=== PATIENT | male | born 1930 | race Two or more races ===

== ENCOUNTER 2017-04-24 18:07 | Inpatient (IN) | payer MEDICARE, MEDICAID ==
[~2017-04-24] VITALS: Ht 170.2 cm; Wt 66.7 kg
[2017-04-24] MEDS ORDERED: SINEMET 25/1001 EA ORAL (18:14)
[2017-04-24] MEDS ORDERED: IBUPROFEN600 MG ORAL (18:14)
[2017-04-24] MEDS ORDERED: NORVASC2.5 MG ORAL (18:14)
[2017-04-24] MEDS ORDERED: VICODIN ES 7.51 EAC1 ORAL (18:14)
[2017-04-24] MEDS ORDERED: NITROGLYCERIN2.5 M1 PO (18:14)
[2017-04-24] MEDS ORDERED: MECLIZINE HCL25 M1 ORAL (18:14)
[2017-04-24] MEDS ORDERED: CLOPIDOGREL75 MG ORAL (18:14)
[2017-04-24 19:00] VITALS: BP 124/47
[2017-04-24 19:02] LABS: BASOPHILS % (AUTO) 0.7 % (0.0-2.0); EOSINOPHILS % (AUTO) 0.2 % (0.0-3.0); LYMPHOCYTES % (AUTO) 20.7 % (20.0-45.0); MEAN CORPUSCULAR HEMOGLOBIN 31.7 PG (27.0-31.0); MEAN CORPUSCULAR HGB CONC 34.8 G/DL (32.0-36.0); MEAN CORPUSCULAR VOLUME 91 FL (80-99); MEAN PLATELET VOLUME 7.6 FL (6.5-10.1); MONOCYTES % (AUTO) 7.8 % (1.0-10.0); NEUTROPHILS % (AUTO) 70.6 % (45.0-75.0); PLATELET COUNT 185 K/UL (150-450); RED BLOOD COUNT 3.75 M/UL (4.70-6.10); RED CELL DISTRIBUTION WIDTH 11.5 % (11.6-14.8); WHITE BLOOD COUNT 4.8 K/UL (4.8-10.8)
[2017-04-24 19:11] LABS: TROPONIN I < 0.30 ng/mL (<=0.30)
[2017-04-24 19:14] LABS: ALANINE AMINOTRANSFERASE 5 U/L (3-41); ALBUMIN/GLOBULIN RATIO 1.8 (1.0-2.7); ANION GAP 23 (5-15); ASPARTATE AMINO TRANSFERASE 11 U/L (5-40); CALCIUM 10.1 mg/dL (8.6-10.2); CARBON DIOXIDE 18 mEQ/L (20-30); CHLORIDE 91 mEQ/L (98-107); CREATININE 1.1 mg/dL (0.7-1.2); HEMOLYSIS 5; POTASSIUM 4.3 mEQ/L (3.4-4.9); SODIUM 132 mEQ/L (135-145); TOTAL PROTEIN 6.9 g/dL (6.6-8.7)
[2017-04-24 19:16] LABS: APPEARANCE,URINE CLEAR; PH,URINE 7 (4.5-8.0); PROTEIN,URINE NEGATIVE (NEGATIVE)
[2017-04-24 19:16] LABS: INR 0.9 (0.9-1.1); PROTHROMBIN TIME 9.8 SEC (9.30-11.50)
[2017-04-24 19:17] LABS: KETONES,URINE NEGATIVE (NEGATIVE); LEUKOCYTE ESTERASE ,URINE NEGATIVE (NEGATIVE); NITRITE,URINE NEGATIVE (NEGATIVE); UROBILINOGEN,URINE NORMAL MG/DL (0.0-1.0)
[2017-04-24 19:21] LABS: CKMB 2.6 ng/mL (< 6.7)
[2017-04-24 20:40] VITALS: BP 152/44
--- NOTE | 2017-04-24 21:46 | Emergency Room Report ---
History of Present Illness General Chief Complaint: Dyspnea/Respdistress Source: Patient, Caregiver Present Illness HPI This patient is brought in by EMS. He complains of chest tightness and difficulty breathing. He states it is been going on for the past couple days. He denies cough or congestion. Denies fever chills. Denies nausea or vomiting. He does have some abdominal pain and has had some difficulty urinating. He has no other complaints. Allergies: Coded Allergies: No Known Allergies (Unverified , 04/24/17) Patient History Past Medical History: see triage record, HTN, [place], CAD Past Surgical History: pacemaker Social History: Denies: alcohol use, drug use, smoking Reviewed Nursing Documentation: PMH: Agreed, PSxH: Agreed Nursing Documentation-PMH Hx Cardiac Problems: Yes Hx Hypertension: Yes Hx Pacemaker: Yes Hx Asthma: No Hx COPD: No Hx Diabetes: No Hx Cancer: No Hx Gastrointestinal Problems: No Hx Dialysis: No History Of Psychiatric Problem: No Hx Neurological Problems: No Hx Cerebrovascular Accident: No Hx Seizures: No Review of Systems All Other Systems: negative except mentioned in HPI Physical Exam Vital Signs Date Time Temp Pulse Resp B/P Pulse Ox O2 Delivery O2 Flow Rate FiO2 04/24/17 18:07 96 20 156/68 100 Room Air 04/24/17 20:40 97.9 Sp02 EP Interpretation: reviewed, normal General Appearance: no apparent distress, alert, GCS 15, non-toxic Head: normocephalic, atraumatic Eyes: bilateral eye PERRL, bilateral eye normal inspection ENT: hearing grossly normal, normal pharynx, no angioedema, normal voice Neck: full range of motion, supple/symm/no masses Respiratory: chest non-tender, lungs clear, normal breath sounds, speaking full sentences Cardiovascular #1: regular rate, rhythm, no edema, systolic murmur Gastrointestinal: normal bowel sounds, soft, no guarding, no rebound, tenderness - TTP suprapubically. Rectal: deferred Musculoskeletal: back normal, gait/station normal, normal range of motion, non- tender Neurologic: alert, oriented x3, responsive, motor strength/tone normal, sensory intact, speech normal Psychiatric: judgement/insight normal, memory normal, mood/affect normal, no suicidal/homicidal ideation Skin: normal color, no rash, warm/dry, well hydrated Medical Decision Making Diagnostic Impression: Primary Impression: Dyspnea Additional Impressions: Chest pain Urinary retention ER Course This patient presents with chest tightness and dyspnea. He is high risk for acute coronary syndrome given his age and his history of coronary artery disease and has a pacemaker. He also found to have urinary retention and a Coleman catheter was placed with significant relief. There is no evidence of urinary tract infection or prostatitis on urinalysis. Likely this is benign prostatic hypertrophy. Regardless, the patient's high cardiac risk and will be admitted for further evaluation and treatment. The patient remained stable emergency department is admitted. Labs Test 04/24/17 18:00 04/24/17 18:30 White Blood Count 4.8 K/UL (4.8-10.8) Red Blood Count 3.75 M/UL (4.70-6.10) Hemoglobin 11.9 G/DL (14.2-18.0) Hematocrit 34.2 % (42.0-52.0) Mean Corpuscular Volume 91 FL (80-99) Mean Corpuscular Hemoglobin 31.7 PG (27.0-31.0) Mean Corpuscular Hemoglobin Concent 34.8 G/DL (32.0-36.0) Red Cell Distribution Width 11.5 % (11.6-14.8) Platelet Count 185 K/UL (150-450) Mean Platelet Volume 7.6 FL (6.5-10.1) Neutrophils (%) (Auto) 70.6 % (45.0-75.0) Lymphocytes (%) (Auto) 20.7 % (20.0-45.0) Monocytes (%) (Auto) 7.8 % (1.0-10.0) Eosinophils (%) (Auto) 0.2 % (0.0-3.0) Basophils (%) (Auto) 0.7 % (0.0-2.0) Prothrombin Time 9.8 SEC (9.30-11.50) Prothromb Time International Ratio 0.9 (0.9-1.1) Activated Partial Thromboplast Time 25 SEC (23-33) Sodium Level 132 mEQ/L (135-145) Potassium Level 4.3 mEQ/L (3.4-4.9) Chloride Level 91 mEQ/L (98-107) Carbon Dioxide Level 18 mEQ/L (20-30) Anion Gap 23 (5-15) Blood Urea Nitrogen 16 mg/dL (7-23) Creatinine 1.1 mg/dL (0.7-1.2) Estimat Glomerular Filtration Rate mL/min (>60) Glucose Level 114 mg/dL (74-106) Calcium Level 10.1 mg/dL (8.6-10.2) Total Bilirubin 0.3 mg/dL (0.0-1.2) Aspartate Amino Transf (AST/SGOT) 11 U/L (5-40) Alanine Aminotransferase (ALT/SGPT) 5 U/L (3-41) Alkaline Phosphatase 65 U/L (40-129) Total Creatine Kinase 77 U/L (38-174) Creatine Kinase MB 2.6 ng/mL (< 6.7) Creatine Kinase MB Relative Index 3.3 Troponin I < 0.30 ng/mL (<=0.30) Pro-B-Type Natriuretic Peptide 304 pg/mL (0-450) Total Protein 6.9 g/dL (6.6-8.7) Albumin 4.5 g/dL (3.5-5.2) Globulin 2.4 g/dL Albumin/Globulin Ratio 1.8 (1.0-2.7) Urine Color Pale yellow Urine Appearance Clear Urine pH 7 (4.5-8.0) Urine Specific [place] 1.010 (1.005-1.035) Urine Protein Negative (NEGATIVE) Urine Glucose (UA) Negative (NEGATIVE) Urine Ketones Negative (NEGATIVE) Urine Occult Blood Negative (NEGATIVE) Urine Nitrite Negative (NEGATIVE) Urine Bilirubin Negative (NEGATIVE) Urine Urobilinogen Normal MG/DL (0.0-1.0) Urine Leukocyte Esterase Negative (NEGATIVE) EKG Diagnostic Results Rate: normal Rhythm: other ST Segments: no acute changes Other Impression paced Rhythm Strip Diag. Results EP Interpretation: yes Rate: 80's Rhythm: no PVC's, no ectopy, other Other Impression paced Chest X-Ray Diagnostic Results Chest X-Ray Ordered: Yes # of Views/Limited/Complete: 1 View Interpretation: no consolidation, no effusion, no pneumothorax, other - cardiomegaly Indication: Shortness of Breath Impression: No acute disease Date Electronically Signed: Apr 24, 2017 Time Electronically Signed: 21:46 Interpreting ER Physician: Katie Last Vital Signs Date Time Temp Pulse Resp B/P Pulse Ox O2 Delivery O2 Flow Rate FiO2 04/24/17 20:40 97.9 82 26 152/44 100 Room Air Disposition: ADMITTED INPATIENT Condition: Stable Referrals: SAHARA KONG MD (PCP) KATHY GONZALES D.O. Apr 24, 2017 21:46
[2017-04-24] MEDS ORDERED: Miralax 17gm pkt ORAL PRN (22:00)
[2017-04-24] MEDS ORDERED: DuoNeb 0.5-3(2.5)mg/3ml neb HHN PRN (22:00)
[2017-04-24 22:32] VITALS: BP 139/49
[2017-04-24] MEDS ORDERED: Morphine Sulfate 2mg/ml Inj IVP ONE (23:00)
[2017-04-24 23:58] VITALS: BP 145/54
[2017-04-25] VITALS (8 sets, daily range): BP systolic 99–154; BP diastolic 49–71
--- NOTE | 2017-04-25 07:41 | Wound Care Consultation ---
Wound Assessment Wound Assessment #1: Wound Number: #1 Wound Present on Admission: Yes New Wound: No Status Change of Wound: No Wound Location Body Site Modif: right, medial Wound Location Body Site: heel Wound Type: pressure ulcer Page Test: Does not Page Pressure Ulcer Stage: IV/unstageable Wound Thickness: Full Thickness Wound Length: 1.0 Wound Width: 1.0 Wound Depth: utd Percent of Wound Black/Brown: 100 Wound Drainage Amount: None Wound Drainage Odor: None/Absent Tissue Surrounding Wound: Intact Wound General Appearance: Blackened - brown, Clean/Dry Wound Assessment #2: Wound Number: #2 Wound Present on Admission: Yes New Wound: No Status Change of Wound: No Wound Location Body Site Modif: right, lateral Wound Location Body Site: heel Wound Type: other - heel fissures scattered. Page Test: Does not Page Wound Thickness: Partial Thickness Wound Length: 2.0 Wound Width: 2.0 Wound Depth: utd Percent of Wound [place]/Red: 100 Wound Drainage Amount: None Wound Drainage Odor: None/Absent Tissue Surrounding Wound: Erythemic Wound General Appearance: Open to air, Clean/Dry Wound Assessment #3: Wound Number: #3 Wound Present on Admission: Yes New Wound: No Status Change of Wound: No Wound Location Body Site Modif: left Wound Location Body Site: heel Wound Type: pressure ulcer Page Test: Does not Page Pressure Ulcer Stage: deep tissue injury - suspected , patient states tendeness to site. Wound Thickness: Full Thickness Wound Length: 6.0 Wound Width: 6.0 Wound Depth: utd Percent of Wound [place]/Red: 50 Percent of Wound Purple/Maroon: 50 Wound Drainage Amount: None Wound Drainage Odor: None/Absent Tissue Surrounding Wound: dry, flaky skin. Wound General Appearance: Open to air, Clean/Dry Wound Comment #1 right medial heel unstageable pressure ulcer. #2 right lateral heel scattered fissures. #3 left heel suspected deep tissue injury. #4 left and right foot scaly dry flaky skin. Recommendation. -Local wound care as ordered per protocol. -Turn and reposition. -Keep clean and dry. -Avoid shear and friction. -Apply Heel protectors. -Offload heels. - Keep dry skin moisturized. -Assess and notify MD for any changes of condition to skin noted. ISAURA JUAREZ Apr 25, 2017 07:41
[2017-04-25 08:04] LABS: BASOPHILS % (AUTO) 0.4 % (0.0-2.0); EOSINOPHILS % (AUTO) 0.3 % (0.0-3.0); LYMPHOCYTES % (AUTO) 17.6 % (20.0-45.0); MEAN CORPUSCULAR HEMOGLOBIN 32.8 PG (27.0-31.0); MEAN CORPUSCULAR HGB CONC 36.4 G/DL (32.0-36.0); MEAN CORPUSCULAR VOLUME 90 FL (80-99); MEAN PLATELET VOLUME 7.6 FL (6.5-10.1); MONOCYTES % (AUTO) 9.7 % (1.0-10.0); PLATELET COUNT 219 K/UL (150-450); RED BLOOD COUNT 4.29 M/UL (4.70-6.10); RED CELL DISTRIBUTION WIDTH 11.7 % (11.6-14.8)
[2017-04-25 08:20] LABS: ANION GAP 19 (5-15); CALCIUM 9.9 mg/dL (8.6-10.2); CARBON DIOXIDE 22 mEQ/L (20-30); CHLORIDE 95 mEQ/L (98-107); CREATININE 1.2 mg/dL (0.7-1.2); HEMOLYSIS 4; PHOSPHORUS 2.8 mg/dL (2.5-4.8); POTASSIUM 3.8 mEQ/L (3.4-4.9); SODIUM 136 mEQ/L (135-145)
[2017-04-25 08:25] LABS: TROPONIN I < 0.30 ng/mL (<=0.30)
[2017-04-25] MEDS: Sinemet 25/100 tab ORAL SCH ×5 (09:00→17:35)
[2017-04-25] MEDS: Heparin 5000 units/ml inj SUBQ SCH ×2 (10:17→22:28)
[2017-04-25] MEDS: Norco 7.5mg/325mg tab ORAL PRN ×2 (10:24→22:51)
--- NOTE | 2017-04-25 11:15 | Diagnostic Imaging Report ---
Indication: DYSPNEA Technique: One view of the chest Comparison: 04/24/2017 Findings: Stable satisfactory position of left chest pacemaker. The lungs and pleural spaces are clear. The heart remains borderline enlarged. No significant change Impression: Unchanged, over one day, findings as above.
--- NOTE | 2017-04-25 12:04 | Diagnostic Imaging Report ---
Indication: DYSPNEA Technique: One view of the chest Comparison: none Findings: Lungs and pleural spaces are clear. There is a left chest pacemaker. The heart is enlarged. Aorta is tortuous and calcified Impression: No acute process Cardiomegaly
[2017-04-25] MEDS: Vitamin A&D Oint 2oz Tube TOPIC SCH ×2 (12:35→22:52)
[2017-04-25] MEDS ORDERED: AMBIEN10 M1 ORAL (14:27)
[2017-04-25] MEDS ORDERED: LORAZEPAM2 MG ORAL (14:27)
[2017-04-25] MEDS ORDERED: LEXAPRO20 MG ORAL (14:27)
[2017-04-25] MEDS ORDERED: ALLOPURINOL100 M1 ORAL (14:27)
[2017-04-25] MEDS ORDERED: ALENDRONATE SOD70 MG ORAL (14:27)
[2017-04-25] MEDS ORDERED: PLAVIX75 MG ORAL (14:27)
[2017-04-25] MEDS ORDERED: BETHANECHOL CHL50 MG ORAL (14:27)
[2017-04-25] MEDS ORDERED: LOTREL 5-20 MG1 EACH ORAL (14:27)
--- NOTE | 2017-04-25 14:56 | History and Physical ---
History of Present Illness General Date patient seen: Apr 25, 2017 Reason for Hospitalization: Dyspnea/Respdistress Present Illness HPI 86 year old male with hx of pacemaker, CAD, BPH, is brought in by EMS with CC of chest tightness and difficulty breathing. He states it is been going on for the past couple days. He denies cough or congestion. Denies fever chills. Denies nausea or vomiting. He does have some abdominal pain and has had some difficulty urinating. He has no other complaints. He is admitted to telemetry to rule out ACS. Allergies: Coded Allergies: No Known Allergies (Unverified , 04/24/17) Medication History Scheduled Alendronate Sodium* (Fosamax*), 70 MG ORAL ONCE A WEEK, (Reported) Allopurinol* (Allopurinol*), 100 MG ORAL DAILY, (Reported) Amlodipine Besylate (Norvasc), Unknown Dose ORAL DAILY, (Reported) Amlodipine Besylate/Benazepril 5-20 Mg (Lotrel 5-20 Mg Capsule*), 1 CAP ORAL DAILY, (Reported) Bethanechol Chl* (Bethanechol Chloride*), 50 MG ORAL THREE TIMES A DAY, ( Reported) Clopidogrel Bisulfate* (Plavix*), 75 MG ORAL DAILY, (Reported) Clopidogrel* (Clopidogrel*), Unknown Dose ORAL DAILY, (Reported) Escitalopram Oxalate* (Lexapro*), 20 MG ORAL DAILY, (Reported) Ibuprofen* (Motrin*), Unknown Dose ORAL FOUR TIMES A DAY, (Reported) Levodopa/Carbidopa (Carbidopa-Levodopa 25-100 Tab), 1 TAB ORAL THREE TIMES A DAY , (Reported) Lorazepam* (Lorazepam*), 2 MG ORAL DAILY, (Reported) Meclizine Hcl (Meclizine Hcl), Unknown Dose ORAL THREE TIMES A DAY, (Reported) Zolpidem Tartrate* (Ambien*), 10 MG ORAL HS, (Reported) Scheduled PRN Hydrocodone Bit/Acetaminophen 7.5-300 Mg Tabl (Vicodin Es 7.5-300 Mg Tablet), 1 TAB ORAL Q4H PRN for For Pain, (Reported) Miscellaneous Medications Nitroglycerin (Nitroglycerin), Unknown Dose PO, (Reported) Patient History Healthcare decision maker Resuscitation status Full Code Advanced Directive on File Past Medical/Surgical History Past Medical/Surgical History: (1) Pacemaker (2) BPH (benign prostatic hyperplasia) (3) Chest pain (4) Urinary retention Review of Systems All Other Systems: negative except mentioned in HPI Physical Exam General Appearance: cachetic Lines, tubes and drains: peripheral HEENT: normocephalic, atraumatic Neck: non-tender, normal alignment Respiratory/Chest: chest wall non-tender, lungs clear Cardiovascular/Chest: normal peripheral pulses, normal rate Abdomen: normal bowel sounds Genitourinary/Rectal: normal genital exam Last 24 Hour Vital Signs Date Time Temp Pulse Resp B/P Pulse Ox O2 Delivery O2 Flow Rate FiO2 04/25/17 12:00 80 04/25/17 11:37 98.2 83 18 99/49 98 Nasal Cannula 2.0 04/25/17 10:17 87 122/51 04/25/17 08:07 97.2 87 20 122/51 96 Nasal Cannula 2.0 04/25/17 08:00 80 04/25/17 04:00 97.7 84 18 142/71 99 Nasal Cannula 2.0 04/25/17 04:00 84 04/25/17 02:15 84 04/25/17 02:03 98.1 84 18 154/58 100 Nasal Cannula 2.0 04/25/17 02:00 98.1 84 18 154/58 100 Nasal Cannula 2.0 04/25/17 01:43 98.7 87 21 133/54 100 Nasal Cannula 2.0 04/24/17 23:58 99 26 145/54 100 Nasal Cannula 2.0 04/24/17 23:26 97.9 04/24/17 22:32 91 27 139/49 100 Room Air 04/24/17 20:40 97.9 82 26 152/44 100 Room Air 04/24/17 19:00 74 20 124/47 99 Room Air 04/24/17 18:47 77 20 Room Air 04/24/17 18:07 96 20 156/68 100 Room Air Intake and Output 04/24/17 04/25/17 19:00 07:00 Output Total 40 ml 3375 ml Balance -40 ml -3375 ml Output Urine Total 40 ml 3375 ml Laboratory Tests Test 04/24/17 18:00 04/24/17 18:30 04/25/17 07:27 White Blood Count 4.8 K/UL (4.8-10.8) 8.0 K/UL (4.8-10.8) # Red Blood Count 3.75 M/UL (4.70-6.10) L 4.29 M/UL (4.70-6.10) L Hemoglobin 11.9 G/DL (14.2-18.0) L 14.1 G/DL (14.2-18.0) L Hematocrit 34.2 % (42.0-52.0) L 38.6 % (42.0-52.0) L Mean Corpuscular Volume 91 FL (80-99) 90 FL (80-99) Mean Corpuscular Hemoglobin 31.7 PG (27.0-31.0) H 32.8 PG (27.0-31.0) H Mean Corpuscular Hemoglobin Concent 34.8 G/DL (32.0-36.0) 36.4 G/DL (32.0-36.0) H Red Cell Distribution Width 11.5 % (11.6-14.8) L 11.7 % (11.6-14.8) Platelet Count 185 K/UL (150-450) 219 K/UL (150-450) Mean Platelet Volume 7.6 FL (6.5-10.1) 7.6 FL (6.5-10.1) Neutrophils (%) (Auto) 70.6 % (45.0-75.0) 72.0 % (45.0-75.0) Lymphocytes (%) (Auto) 20.7 % (20.0-45.0) 17.6 % (20.0-45.0) L Monocytes (%) (Auto) 7.8 % (1.0-10.0) 9.7 % (1.0-10.0) Eosinophils (%) (Auto) 0.2 % (0.0-3.0) 0.3 % (0.0-3.0) Basophils (%) (Auto) 0.7 % (0.0-2.0) 0.4 % (0.0-2.0) Prothrombin Time 9.8 SEC (9.30-11.50) Prothromb Time International Ratio 0.9 (0.9-1.1) Activated Partial Thromboplast Time 25 SEC (23-33) Sodium Level 132 mEQ/L (135-145) L 136 mEQ/L (135-145) Potassium Level 4.3 mEQ/L (3.4-4.9) 3.8 mEQ/L (3.4-4.9) Chloride Level 91 mEQ/L (98-107) L 95 mEQ/L (98-107) L Carbon Dioxide Level 18 mEQ/L (20-30) L 22 mEQ/L (20-30) Anion Gap 23 (5-15) H 19 (5-15) H Blood Urea Nitrogen 16 mg/dL (7-23) 16 mg/dL (7-23) Creatinine 1.1 mg/dL (0.7-1.2) 1.2 mg/dL (0.7-1.2) Estimat Glomerular Filtration Rate mL/min (>60) mL/min (>60) Glucose Level 114 mg/dL (74-106) H 129 mg/dL (74-106) H Calcium Level 10.1 mg/dL (8.6-10.2) 9.9 mg/dL (8.6-10.2) Total Bilirubin 0.3 mg/dL (0.0-1.2) Aspartate Amino Transf (AST/SGOT) 11 U/L (5-40) Alanine Aminotransferase (ALT/SGPT) 5 U/L (3-41) Alkaline Phosphatase 65 U/L (40-129) Total Creatine Kinase 77 U/L (38-174) Creatine Kinase MB 2.6 ng/mL (< 6.7) Creatine Kinase MB Relative Index 3.3 Troponin I < 0.30 ng/mL (<=0.30) < 0.30 ng/mL (<=0.30) Pro-B-Type Natriuretic Peptide 304 pg/mL (0-450) Total Protein 6.9 g/dL (6.6-8.7) Albumin 4.5 g/dL (3.5-5.2) 4.4 g/dL (3.5-5.2) Globulin 2.4 g/dL Albumin/Globulin Ratio 1.8 (1.0-2.7) Urine Color Pale yellow Urine Appearance Clear Urine pH 7 (4.5-8.0) Urine Specific [place] 1.010 (1.005-1.035) Urine Protein Negative (NEGATIVE) Urine Glucose (UA) Negative (NEGATIVE) Urine Ketones Negative (NEGATIVE) Urine Occult Blood Negative (NEGATIVE) Urine Nitrite Negative (NEGATIVE) Urine Bilirubin Negative (NEGATIVE) Urine Urobilinogen Normal MG/DL (0.0-1.0) Urine Leukocyte Esterase Negative (NEGATIVE) Phosphorus Level 2.8 mg/dL (2.5-4.8) Height (Feet): 5 Height (Inches): 8.00 Weight (Pounds): 138 Medications Current Medications Medications (Trade) Dose Ordered Sig/Chely Route PRN Reason Start Time Stop Time Status Last Admin Dose Admin Acetaminophen (Tylenol) 650 mg Q4H PRN ORAL Fever 04/24/17 22:00 05/24/17 21:59 Acetaminophen/ Hydrocodone Bitart ([place] 7.5/325) 1 ea Q4H PRN ORAL Severe Pain (Pain Scale 7-10) 04/25/17 07:45 05/02/17 07:44 04/25/17 10:24 Albuterol/ Ipratropium (DuoNeb 0.5-3(2.5)mg/3ml) 3 ml Q4H PRN HHN Shortness of Breath 04/24/17 22:00 04/29/17 21:59 Amlodipine Besylate (Norvasc) 5 mg DAILY ORAL 04/25/17 09:00 05/25/17 08:59 04/25/17 10:17 Carbidopa/Levodopa (Sinemet 25/100) 1 ea THREE TIMES A DAY ORAL 04/25/17 09:00 05/25/17 08:59 Clopidogrel Bisulfate (Plavix) 75 mg DAILY ORAL 04/25/17 09:00 05/25/17 08:59 04/25/17 10:16 Dextrose (Dextrose 50%) STAT PRN IV Hypoglycemia 04/24/17 22:00 05/24/17 21:59 Furosemide (Lasix) 40 mg EVERY 8 HOURS IV 04/24/17 23:00 05/24/17 22:59 04/25/17 14:07 Heparin Sodium (Porcine) (Heparin 5000 units/ml) 5,000 units EVERY 12 HOURS SUBQ 04/25/17 09:00 05/25/17 08:59 04/25/17 10:17 Ondansetron HCl (Zofran) 4 mg Q6H PRN IVP Nausea & Vomiting 04/24/17 22:00 05/24/17 21:59 Polyethylene Glycol (Miralax) 17 gm DAILYPRN PRN ORAL Constipation 04/24/17 22:00 05/24/17 21:59 Temazepam (Restoril) 15 mg HSPRN PRN ORAL Insomnia 04/24/17 22:00 05/01/17 21:59 Vitamin A/Vitamin D (A & D Oint) 1 applic EVERY 12 HOURS TOPIC 04/25/17 09:00 05/25/17 08:59 04/25/17 12:35 Assessment/Plan Problem List: (1) Chest pain ICD Codes: R07.9 - Chest pain, unspecified SNOMED: 13130401 (2) Urinary retention ICD Codes: R33.9 - Retention of urine, unspecified SNOMED: 206422799 (3) Dyspnea ICD Codes: R06.00 - Dyspnea, unspecified SNOMED: 214331271 (4) Costochondritis ICD Codes: M94.0 - Chondrocostal junction syndrome [[place]] SNOMED: 41060180 (5) Pacemaker ICD Codes: Z95.0 - Presence of cardiac pacemaker SNOMED: 807316777, 435702670 (6) BPH (benign prostatic hyperplasia) ICD Codes: N40.0 - Benign prostatic hyperplasia without lower urinary tract symptoms SNOMED: 131864338, 068859826 Assessment/Plan serial ekg, torponin echocardiogram cardiology to see Urology evaluation keep the antoine symptomatic management start flomax SEAN WU Apr 25, 2017 14:56
--- NOTE | 2017-04-25 15:32 | Cardiology Report ---
APPROVED REPORT EXAM: Two-dimensional and M-mode echocardiogram with Doppler and color Doppler. INDICATION LV function M-Mode DIMENSIONS IVSd1.3 (0.7-1.1cm)Left Atrium (MM)4.3 (1.6-4.0cm) LVDd3.8 (3.5-5.6cm)Aortic Root3.8 (2.0-3.7cm) PWd1.5 (0.7-1.1cm)Aortic Cusp Exc.1.6 (1.5-2.0cm) LVDs2.2 (2.5-4.0cm) PWs1.6 cm Other Information Technically limited study due to poor acoustic window. Normal left ventricular chamber size, systolic function and wall motion to extent visualized. Left ventricular ejection fraction estimated to be 55 %. Mild left ventricular hypertrophy. No evidence of pericardial effusion. All other cardiac chamber sizes are within normal limits. Focal aortic valve sclerosis with adequate cusp excursion. Mild aortic root dilatation. Thickened mitral valve leaflets with normal excursion. Mitral annulus and aortic root calcification. Pulmonic valve not well visualized. Normal tricuspid valve structure. IVC at normal size with physiologic collapse. Pacemaker wire present in the right side chambers. A color flow and spectral Doppler study was performed and revealed: Mild aortic regurgitation. Trace mitral regurgitation. Mitral diastolic velocities suggest reduced left ventricular relaxation c/w mild LV diastolic dysfunction (Grade I ). Trace to mild tricuspid regurgitation. Tricuspid systolic velocities suggests peak right ventricular systolic pressure of 25 mmHg.
[2017-04-25] MEDS: Docusate 100mg cap ORAL SCH ×2 (15:34→17:35)
[2017-04-25] MEDS: Lactulose 20gm/30ml UDC ORAL SCH ×2 (15:35→17:35)
--- NOTE | 2017-04-25 16:37 | Cardiology Report ---
APPROVED REPORT EKG Measurement Heart [id number] Abnormal ECG Atrioventricular Sequential Pacemaker
--- NOTE | 2017-04-25 17:38 | Cardiology Progress Note ---
Subjective Subjective No evidence of CHF discontinue Lasix pacemaker AZALIA scheduled pacemaker generator change for Sunday Objective Last 24 Hour Vital Signs Date Time Temp Pulse Resp B/P Pulse Ox O2 Delivery O2 Flow Rate FiO2 04/25/17 16:00 99.3 76 18 119/52 98 Nasal Cannula 04/25/17 12:00 80 04/25/17 11:37 98.2 83 18 99/49 98 Nasal Cannula 2.0 04/25/17 10:17 87 122/51 04/25/17 08:07 97.2 87 20 122/51 96 Nasal Cannula 2.0 04/25/17 08:00 80 04/25/17 04:00 97.7 84 18 142/71 99 Nasal Cannula 2.0 04/25/17 04:00 84 04/25/17 02:15 84 04/25/17 02:03 98.1 84 18 154/58 100 Nasal Cannula 2.0 04/25/17 02:00 98.1 84 18 154/58 100 Nasal Cannula 2.0 04/25/17 01:43 98.7 87 21 133/54 100 Nasal Cannula 2.0 04/24/17 23:58 99 26 145/54 100 Nasal Cannula 2.0 04/24/17 23:26 97.9 04/24/17 22:32 91 27 139/49 100 Room Air 04/24/17 20:40 97.9 82 26 152/44 100 Room Air 04/24/17 19:00 74 20 124/47 99 Room Air 04/24/17 18:47 77 20 Room Air 04/24/17 18:07 96 20 156/68 100 Room Air Intake and Output 04/24/17 04/25/17 19:00 07:00 Output Total 40 ml 3375 ml Balance -40 ml -3375 ml Output Urine Total 40 ml 3375 ml Laboratory Tests Test 04/24/17 18:00 04/24/17 18:30 04/25/17 07:27 White Blood Count 4.8 K/UL (4.8-10.8) 8.0 K/UL (4.8-10.8) # Red Blood Count 3.75 M/UL (4.70-6.10) L 4.29 M/UL (4.70-6.10) L Hemoglobin 11.9 G/DL (14.2-18.0) L 14.1 G/DL (14.2-18.0) L Hematocrit 34.2 % (42.0-52.0) L 38.6 % (42.0-52.0) L Mean Corpuscular Volume 91 FL (80-99) 90 FL (80-99) Mean Corpuscular Hemoglobin 31.7 PG (27.0-31.0) H 32.8 PG (27.0-31.0) H Mean Corpuscular Hemoglobin Concent 34.8 G/DL (32.0-36.0) 36.4 G/DL (32.0-36.0) H Red Cell Distribution Width 11.5 % (11.6-14.8) L 11.7 % (11.6-14.8) Platelet Count 185 K/UL (150-450) 219 K/UL (150-450) Mean Platelet Volume 7.6 FL (6.5-10.1) 7.6 FL (6.5-10.1) Neutrophils (%) (Auto) 70.6 % (45.0-75.0) 72.0 % (45.0-75.0) Lymphocytes (%) (Auto) 20.7 % (20.0-45.0) 17.6 % (20.0-45.0) L Monocytes (%) (Auto) 7.8 % (1.0-10.0) 9.7 % (1.0-10.0) Eosinophils (%) (Auto) 0.2 % (0.0-3.0) 0.3 % (0.0-3.0) Basophils (%) (Auto) 0.7 % (0.0-2.0) 0.4 % (0.0-2.0) Prothrombin Time 9.8 SEC (9.30-11.50) Prothromb Time International Ratio 0.9 (0.9-1.1) Activated Partial Thromboplast Time 25 SEC (23-33) Sodium Level 132 mEQ/L (135-145) L 136 mEQ/L (135-145) Potassium Level 4.3 mEQ/L (3.4-4.9) 3.8 mEQ/L (3.4-4.9) Chloride Level 91 mEQ/L (98-107) L 95 mEQ/L (98-107) L Carbon Dioxide Level 18 mEQ/L (20-30) L 22 mEQ/L (20-30) Anion Gap 23 (5-15) H 19 (5-15) H Blood Urea Nitrogen 16 mg/dL (7-23) 16 mg/dL (7-23) Creatinine 1.1 mg/dL (0.7-1.2) 1.2 mg/dL (0.7-1.2) Estimat Glomerular Filtration Rate mL/min (>60) mL/min (>60) Glucose Level 114 mg/dL (74-106) H 129 mg/dL (74-106) H Calcium Level 10.1 mg/dL (8.6-10.2) 9.9 mg/dL (8.6-10.2) Total Bilirubin 0.3 mg/dL (0.0-1.2) Aspartate Amino Transf (AST/SGOT) 11 U/L (5-40) Alanine Aminotransferase (ALT/SGPT) 5 U/L (3-41) Alkaline Phosphatase 65 U/L (40-129) Total Creatine Kinase 77 U/L (38-174) Creatine Kinase MB 2.6 ng/mL (< 6.7) Creatine Kinase MB Relative Index 3.3 Troponin I < 0.30 ng/mL (<=0.30) < 0.30 ng/mL (<=0.30) Pro-B-Type Natriuretic Peptide 304 pg/mL (0-450) Total Protein 6.9 g/dL (6.6-8.7) Albumin 4.5 g/dL (3.5-5.2) 4.4 g/dL (3.5-5.2) Globulin 2.4 g/dL Albumin/Globulin Ratio 1.8 (1.0-2.7) Urine Color Pale yellow Urine Appearance Clear Urine pH 7 (4.5-8.0) Urine Specific [place] 1.010 (1.005-1.035) Urine Protein Negative (NEGATIVE) Urine Glucose (UA) Negative (NEGATIVE) Urine Ketones Negative (NEGATIVE) Urine Occult Blood Negative (NEGATIVE) Urine Nitrite Negative (NEGATIVE) Urine Bilirubin Negative (NEGATIVE) Urine Urobilinogen Normal MG/DL (0.0-1.0) Urine Leukocyte Esterase Negative (NEGATIVE) Phosphorus Level 2.8 mg/dL (2.5-4.8) BALAJI PEACOCK Apr 25, 2017 17:38
[2017-04-25] MEDS ORDERED: Miralax 17gm pkt ORAL SCH (21:00)
--- NOTE | 2017-04-25 21:00 | Consultation ---
DATE OF CONSULTATION: 04/25/2017 CARDIOLOGY CONSULTATION IDENTIFYING DATA: This is an 86-year-old male. REASON FOR EVALUATION: Shortness of breath. HISTORY OF PRESENT ILLNESS: This patient is well known to me. I have to him last week. His pacemaker is AZALIA. He was complaining of shortness of breath and he called the ambulance. The patient recently lost his . PAST MEDICAL HISTORY: Significant for anxiety, weakness, arthritis and hypertension. ALLERGIES: Not reported. HABITS: No history of drinking, smoking or drug abuse. SOCIAL HISTORY: He is a . He has caring son. REVIEW OF SYSTEMS: Negative for orthopnea or shortness of breath. At present time, no chest pain. No fever. No chills. No nausea or vomiting. PHYSICAL EXAMINATION: GENERAL: He is anxious elderly man, resting in bed. VITAL SIGNS: Blood pressure 110/58, heart rate is 70, temperature 99.3 degrees, and oxygen saturation on room air is 98%. HEENT: PERRLA. EOMI. NECK: Neck veins are not distended. There is a normal carotid upstroke. No thyromegaly. Neck is supple. LUNGS: A few crackles at bases. HEART: Regular with slightly accented A2. ABDOMEN: Soft, distended and nontender. Bowel sounds are present. No masses. EXTREMITIES: Lower extremities, no edema. He has a Coleman catheter. NEUROLOGIC: Intact. LABORATORY AND DIAGNOSTIC DATA: Laboratory data all reviewed. Troponin is negative. Glucose 114, sodium 136, BUN is 16 and creatinine 1.2 today. EKG shows a spontaneous sinus rhythm with ventricular pacing. His chest x-ray is unremarkable. His level is 304. Urinalysis is clear. IMPRESSION AND RECOMMENDATION: 1. Panic attack. 2. Pacemaker elective replacement interval. PLAN: Discontinue Lasix and we will arrange to schedule the patient for generator replacement as soon as they have a slot available. Thank you for your consultation. Belinda Alcazar M.D. DR: BAUDILIO JOB#: [id number] CC:
[2017-04-25] MEDS: Tamsulosin 0.4mg cap ORAL SCH (22:24)
[2017-04-26 04:03] VITALS: BP 111/44
[2017-04-26 06:53] LABS: TROPONIN I < 0.30 ng/mL (<=0.30)
[2017-04-26 08:00] VITALS: BP 119/46
[2017-04-26] MEDS: Lactulose 20gm/30ml UDC ORAL SCH (09:00)
[2017-04-26] MEDS: Docusate 100mg cap ORAL SCH ×3 (09:41→18:40)
[2017-04-26] MEDS: Heparin 5000 units/ml inj SUBQ SCH ×2 (09:44→20:09)
[2017-04-26] MEDS: Sinemet 25/100 tab ORAL SCH ×3 (09:44→18:40)
[2017-04-26] MEDS: Vitamin A&D Oint 2oz Tube TOPIC SCH ×2 (09:44→20:10)
[2017-04-26] MEDS: Norco 7.5mg/325mg tab ORAL PRN ×2 (09:52→22:18)
[2017-04-26 12:00] VITALS: BP 135/66
--- NOTE | 2017-04-26 13:16 | Pulmonology Progress Note ---
Assessment/Plan Problems: (1) Chest pain (2) Urinary retention (3) Dyspnea (4) Costochondritis (5) Pacemaker (6) BPH (benign prostatic hyperplasia) Assessment/Plan pt had a few times of BM will dc laxatives was seen by cardiology pacemaker generator change tomorrow Subjective ROS Limited/Unobtainable: No Interval Events: no new event, had a few large BM Allergies: Coded Allergies: No Known Allergies (Unverified , 04/24/17) Objective Last 24 Hour Vital Signs Date Time Temp Pulse Resp B/P Pulse Ox O2 Delivery O2 Flow Rate FiO2 04/26/17 12:00 97.9 83 18 135/66 Nasal Cannula 2.0 96 04/26/17 09:42 68 122/58 04/26/17 08:00 82 04/26/17 08:00 97.9 82 19 119/46 Nasal Cannula 2.0 98 04/26/17 04:03 98.1 75 20 111/44 96 Nasal Cannula 2.0 04/26/17 04:00 67 04/26/17 00:00 86 04/25/17 23:48 98.8 103 21 141/68 100 Nasal Cannula 2.0 04/25/17 20:00 78 04/25/17 19:57 98.6 94 20 109/57 98 Nasal Cannula 2.0 04/25/17 17:00 97.7 04/25/17 16:00 99.3 76 18 119/52 98 Nasal Cannula 04/25/17 16:00 76 Intake and Output 04/25/17 04/26/17 19:00 07:00 Intake Total 840 ml Output Total 900 ml 700 ml Balance -60 ml -700 ml Intake Oral 840 ml Output Urine Total 900 ml 700 ml # Bowel Movements 1 2 General Appearance: WD/WN HEENT: normocephalic, atraumatic Respiratory/Chest: chest wall non-tender, lungs clear Cardiovascular: normal peripheral pulses, normal rate Abdomen: normal bowel sounds, soft, non tender, no scars Extremities: no cyanosis Skin: no rash 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, no motor/sensory deficits Lymphatic: no neck adenopathy Laboratory Tests 04/26/17 06:30: Troponin I < 0.30 Current Medications Medications (Trade) Dose Ordered Sig/Chely Route PRN Reason Start Time Stop Time Status Last Admin Dose Admin Acetaminophen (Tylenol) 650 mg Q4H PRN ORAL Fever 04/24/17 22:00 05/24/17 21:59 Acetaminophen/ Hydrocodone Bitart ([place] 7.5/325) 1 ea Q4H PRN ORAL Severe Pain (Pain Scale 7-10) 04/25/17 07:45 05/02/17 07:44 04/26/17 09:52 Albuterol/ Ipratropium (DuoNeb 0.5-3(2.5)mg/3ml) 3 ml Q4H PRN HHN Shortness of Breath 04/24/17 22:00 04/29/17 21:59 Amlodipine Besylate (Norvasc) 5 mg DAILY ORAL 04/25/17 09:00 05/25/17 08:59 04/26/17 09:42 Carbidopa/Levodopa (Sinemet 25/100) 1 ea THREE TIMES A DAY ORAL 04/25/17 09:00 05/25/17 08:59 04/26/17 09:44 Clopidogrel Bisulfate (Plavix) 75 mg DAILY ORAL 04/25/17 09:00 05/25/17 08:59 04/26/17 09:43 Dextrose (Dextrose 50%) STAT PRN IV Hypoglycemia 04/24/17 22:00 05/24/17 21:59 Docusate Sodium (Colace) 100 mg THREE TIMES A DAY ORAL 04/25/17 15:00 05/25/17 14:59 04/26/17 09:41 Heparin Sodium (Porcine) (Heparin 5000 units/ml) 5,000 units EVERY 12 HOURS SUBQ 04/25/17 09:00 05/25/17 08:59 04/26/17 09:44 Lactulose (Cephulac) 30 gm THREE TIMES A DAY ORAL 04/25/17 15:00 05/25/17 14:59 04/26/17 09:00 Mineral Oil (Fleet's Mineral Oil Enema) 133 ml EVERY OTHER DAY RECTAL 04/27/17 09:00 05/27/17 08:59 Ondansetron HCl (Zofran) 4 mg Q6H PRN IVP Nausea & Vomiting 04/24/17 22:00 05/24/17 21:59 Polyethylene Glycol (Miralax) 17 gm BEDTIME ORAL 04/25/17 21:00 05/25/17 20:59 Polyethylene Glycol (Miralax) 17 gm DAILYPRN PRN ORAL Constipation 04/24/17 22:00 05/24/17 21:59 Sennosides (Senokot) 8.6 mg DAILY ORAL 04/25/17 15:00 05/25/17 14:59 04/26/17 09:43 Tamsulosin HCl (Flomax) 0.4 mg BEDTIME ORAL 04/25/17 21:00 05/25/17 20:59 04/25/17 22:24 Temazepam (Restoril) 15 mg HSPRN PRN ORAL Insomnia 04/24/17 22:00 05/01/17 21:59 04/25/17 22:52 Vitamin A/Vitamin D (A & D Oint) 1 applic EVERY 12 HOURS TOPIC 04/25/17 09:00 05/25/17 08:59 04/26/17 09:44 SEAN WU Apr 26, 2017 13:16
--- NOTE | 2017-04-26 13:46 | Diagnostic Imaging Report ---
APPROVED REPORT CPT Code: 25773 Present Symptoms Shortness of breath BILATERAL: Imaging reveals a patent deep venous system bilaterally. There is no evidence of thrombus within the femoral, popliteal or tibial segments. The greater saphenous veins are also within normal limits. Doppler indicates normal spontaneous flow within these segments.
--- NOTE | 2017-04-26 14:03 | Physician Query ---
PLEASE COMPLETE DOCUMENT BEFORE SIGNING Dear Dr. Jhon Richardson Date: May 15, 2017 [employer] Supervisor/CDS Name: MATTHEW GRIDER CCS Exercise your independent professional judgment when responding to the query. Questions asked do not imply a particular answer is desired or expected. We greatly appreciate your clarification on this issue. CLINICAL DOCUMENTATION STATES: " Pressure Ulcer Stage: IV/unstageable" was documented in the wound care nurse' s notes. CLINICAL FINDINGS SHOW: Wound Number: #1 Wound Present on Admission: Yes New Wound: No Status Change of Wound: No Wound Location Body Site Modif: right, medial Wound Location Body Site: heel Wound Type: pressure ulcer Page Test: Does not Page Pressure Ulcer Stage: IV/unstageable Wound Thickness: Full Thickness Wound Length: 1.0 Wound Width: 1.0 Wound Depth: utd Percent of Wound Black/Brown: 100 Wound Drainage Amount: None Wound Drainage Odor: None/Absent Tissue Surrounding Wound: Intact Wound General Appearance: Blackened - brown, Clean/Dry Please respond to the following question: PLEASE INDICATE IF YOU CAN CONFIRM OR NOT, THE WOUND CARE NURSE DX OF PRESSURE ULCER IV/UNSTAGEABLE? PHYSICIAN RESPONSE: Condition Present on Admission: [] Yes [] No []Clinically Undeterminable Please also document in your Progress Notes and/or Discharge Summary and indicate if the condition was present on admission. Jhon Richardson MD Date/Time [facility]
[2017-04-26 16:00] VITALS: BP 114/60
[2017-04-26] MEDS: Tamsulosin 0.4mg cap ORAL SCH (20:08)
[2017-04-26 20:12] VITALS: BP 132/53
--- NOTE | 2017-04-26 23:20 | Cardiology Progress Note ---
Subjective Subjective pacemaker generator change scheduled for Sunday04/28/17 Objective Last 24 Hour Vital Signs Date Time Temp Pulse Resp B/P Pulse Ox O2 Delivery O2 Flow Rate FiO2 04/26/17 20:12 98.2 95 19 132/53 97 Nasal Cannula 2.0 04/26/17 20:00 96 04/26/17 16:00 98.4 83 18 114/60 Nasal Cannula 2.0 98 04/26/17 16:00 80 04/26/17 12:00 97.9 83 18 135/66 Nasal Cannula 2.0 96 04/26/17 09:42 68 122/58 04/26/17 08:00 82 04/26/17 08:00 97.9 82 19 119/46 Nasal Cannula 2.0 98 04/26/17 04:03 98.1 75 20 111/44 96 Nasal Cannula 2.0 04/26/17 04:00 67 04/26/17 00:00 86 04/25/17 23:48 98.8 103 21 141/68 100 Nasal Cannula 2.0 Intake and Output 04/25/17 04/26/17 19:00 07:00 Intake Total 840 ml Output Total 900 ml 700 ml Balance -60 ml -700 ml Intake Oral 840 ml Output Urine Total 900 ml 700 ml # Bowel Movements 1 2 Laboratory Tests Test 04/26/17 06:30 Troponin I < 0.30 ng/mL (<=0.30) BALAJI PEACOCK Apr 26, 2017 23:20
[2017-04-26 23:52] VITALS: BP 139/73
[2017-04-27 03:47] VITALS: BP 131/71
[2017-04-27 08:00] VITALS: BP 129/55
[2017-04-27] MEDS ORDERED: Fleet's Mineral Oil Enema RECTAL SCH (09:00)
[2017-04-27] MEDS: Sinemet 25/100 tab ORAL SCH ×3 (09:56→17:42)
[2017-04-27] MEDS: Vitamin A&D Oint 2oz Tube TOPIC SCH ×2 (09:56→20:49)
[2017-04-27] MEDS: Docusate 100mg cap ORAL SCH ×3 (09:56→17:42)
[2017-04-27] MEDS: Heparin 5000 units/ml inj SUBQ SCH ×2 (09:59→20:48)
[2017-04-27] MEDS: Norco 7.5mg/325mg tab ORAL PRN ×3 (10:02→20:47)
[2017-04-27 12:00] VITALS: BP 137/64
[2017-04-27] MEDS ORDERED: Lactulose 20gm/30ml UDC ORAL PRN (12:15)
--- NOTE | 2017-04-27 12:18 | Pulmonology Progress Note ---
Assessment/Plan Problems: (1) Chest pain (2) Urinary retention (3) Dyspnea (4) Costochondritis (5) Pacemaker (6) BPH (benign prostatic hyperplasia) Assessment/Plan no new complains asking for laxatives again was seen by cardiology pacemaker generator change tomorrow dc after replacement of pace maker generator Subjective ROS Limited/Unobtainable: No Interval Events: placement of the pacemaker generater was delayed until tomorrow Constitutional: Reports: no symptoms HEENT: Repors: no symptoms Allergies: Coded Allergies: No Known Allergies (Unverified , 04/24/17) Objective Last 24 Hour Vital Signs Date Time Temp Pulse Resp B/P Pulse Ox O2 Delivery O2 Flow Rate FiO2 04/27/17 11:01 98.4 04/27/17 09:55 92 129/55 04/27/17 08:00 94 04/27/17 08:00 96.8 92 18 129/55 92 Nasal Cannula 2.0 04/27/17 04:00 66 04/27/17 03:47 98.4 79 19 131/71 93 Nasal Cannula 2.0 04/27/17 00:00 89 04/26/17 23:52 98.6 82 20 139/73 98 Nasal Cannula 2.0 04/26/17 20:12 98.2 95 19 132/53 97 Nasal Cannula 2.0 04/26/17 20:00 96 04/26/17 16:00 98.4 83 18 114/60 Nasal Cannula 2.0 98 04/26/17 16:00 80 Intake and Output 04/26/17 04/27/17 19:00 07:00 Output Total 1100 ml Balance -1100 ml Output Urine Total 1100 ml General Appearance: WD/WN HEENT: normocephalic, atraumatic Respiratory/Chest: chest wall non-tender, lungs clear Cardiovascular: normal peripheral pulses, normal rate Abdomen: normal bowel sounds, soft, non tender, no organomegaly Genitourinary: normal external genitalia Extremities: no cyanosis Skin: no rash, no lesions 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 Current Medications Medications (Trade) Dose Ordered Sig/Chely Route PRN Reason Start Time Stop Time Status Last Admin Dose Admin Acetaminophen (Tylenol) 650 mg Q4H PRN ORAL Fever 04/24/17 22:00 05/24/17 21:59 Acetaminophen/ Hydrocodone Bitart ([place] 7.5/325) 1 ea Q4H PRN ORAL Severe Pain (Pain Scale 7-10) 04/25/17 07:45 05/02/17 07:44 04/27/17 10:02 Albuterol/ Ipratropium (DuoNeb 0.5-3(2.5)mg/3ml) 3 ml Q4H PRN HHN Shortness of Breath 04/24/17 22:00 04/29/17 21:59 Amlodipine Besylate (Norvasc) 5 mg DAILY ORAL 04/25/17 09:00 05/25/17 08:59 04/27/17 09:55 Carbidopa/Levodopa (Sinemet 25/100) 1 ea THREE TIMES A DAY ORAL 04/25/17 09:00 05/25/17 08:59 04/27/17 09:56 Clopidogrel Bisulfate (Plavix) 75 mg DAILY ORAL 04/25/17 09:00 05/25/17 08:59 04/27/17 09:55 Dextrose (Dextrose 50%) STAT PRN IV Hypoglycemia 04/24/17 22:00 05/24/17 21:59 Docusate Sodium (Colace) 100 mg THREE TIMES A DAY ORAL 04/25/17 15:00 05/25/17 14:59 04/27/17 09:56 Heparin Sodium (Porcine) (Heparin 5000 units/ml) 5,000 units EVERY 12 HOURS SUBQ 04/25/17 09:00 05/25/17 08:59 04/27/17 09:59 Ondansetron HCl (Zofran) 4 mg Q6H PRN IVP Nausea & Vomiting 04/24/17 22:00 05/24/17 21:59 Tamsulosin HCl (Flomax) 0.4 mg BEDTIME ORAL 04/25/17 21:00 05/25/17 20:59 04/26/17 20:08 Temazepam (Restoril) 15 mg HSPRN PRN ORAL Insomnia 04/24/17 22:00 05/01/17 21:59 04/26/17 23:26 Vitamin A/Vitamin D (A & D Oint) 1 applic EVERY 12 HOURS TOPIC 04/25/17 09:00 05/25/17 08:59 04/27/17 09:56 SEAN WU Apr 27, 2017 12:18
[2017-04-27 13:32] LABS: BASOPHILS % (AUTO) 0.5 % (0.0-2.0); EOSINOPHILS % (AUTO) 0.1 % (0.0-3.0); LYMPHOCYTES % (AUTO) 9.6 % (20.0-45.0); MEAN CORPUSCULAR HEMOGLOBIN 31.1 PG (27.0-31.0); MEAN CORPUSCULAR HGB CONC 32.3 G/DL (32.0-36.0); MEAN CORPUSCULAR VOLUME 96 FL (80-99); MEAN PLATELET VOLUME 8.5 FL (6.5-10.1); MONOCYTES % (AUTO) 7.2 % (1.0-10.0); NEUTROPHILS % (AUTO) 82.6 % (45.0-75.0); PLATELET COUNT 243 K/UL (150-450); RED BLOOD COUNT 4.49 M/UL (4.70-6.10); RED CELL DISTRIBUTION WIDTH 12.1 % (11.6-14.8); WHITE BLOOD COUNT 14.2 K/UL (4.8-10.8)
[2017-04-27 13:59] LABS: ALANINE AMINOTRANSFERASE 5 U/L (3-41); ALBUMIN/GLOBULIN RATIO 1.6 (1.0-2.7); ANION GAP 17 (5-15); ASPARTATE AMINO TRANSFERASE 14 U/L (5-40); CALCIUM 9.6 mg/dL (8.6-10.2); CARBON DIOXIDE 23 mEQ/L (20-30); CHLORIDE 95 mEQ/L (98-107); CREATININE 1.2 mg/dL (0.7-1.2); HEMOLYSIS 4; POTASSIUM 4.3 mEQ/L (3.4-4.9); SODIUM 135 mEQ/L (135-145); TOTAL PROTEIN 6.7 g/dL (6.6-8.7)
[2017-04-27] MEDS: Bethanechol 25mg Tab ORAL SCH ×2 (15:05→20:46)
[2017-04-27 16:00] VITALS: BP 136/57
[2017-04-27 20:01] VITALS: BP 148/69
[2017-04-27] MEDS: Tamsulosin 0.4mg cap ORAL SCH (20:46)
[2017-04-27] MEDS ORDERED: Sinemet 25/100 tab ORAL ONE (23:15)
[2017-04-28] VITALS (8 sets, daily range): BP systolic 111–157; BP diastolic 41–79
[2017-04-28] MEDS ORDERED: ceFAZolin sod 2 GM in D5W 110 ML IVPB ONE (09:00)
[2017-04-28] MEDS: Sinemet 25/100 tab ORAL SCH ×2 (09:00→12:38)
[2017-04-28] MEDS: Docusate 100mg cap ORAL SCH ×2 (09:00→12:38)
[2017-04-28] MEDS: Heparin 5000 units/ml inj SUBQ SCH (09:00)
[2017-04-28] MEDS ORDERED: Bupivacaine 0.25% Inj 30ml INJ ONE (09:43)
[2017-04-28] MEDS ORDERED: Bacitracin 50000 Units Vial ONE (09:43)
[2017-04-28] MEDS ORDERED: Lidocaine 1% Plain 30 ml INJ ONE (09:43)
--- NOTE | 2017-04-28 09:45 | Anethesia Preoperative Eval ---
Anesthesia Pre-op PMH/ROS General Date of Evaluation: Apr 28, 2017 Anesthesiologist: Jose Juan ASA Score: ASA 3 Mallampati Score Class I : Soft palate, uvula, fauces, pillars visible Class II: Soft palate, uvula, fauces visible Class III: Soft palate, base of uvula visible Class IV: Only hard plate visible Mallampati Classification: Class II Surgeon: Ottoniel Diagnosis: Pacemaker Surgical Procedure: Elective pacemaker generator change Anesthesia History: none Family History: no anesthesia problems Allergies: Coded Allergies: No Known Allergies (Unverified , 04/24/17) Medications: see eMAR Past Medical History Cardiovascular: Reports: CAD, HTN, arrhythmia - pacemaker in place, Denies: VA, other, valve dz Pulmonary: Denies: COPD, LEE, asthma, other Gastrointestinal/Genitourinary: Reports: other - BPH, Denies: CRI, ESRD, GERD Neurologic/Psychiatric: Reports: depression/anxiety - recent loss of his , Denies: CVA, TIA, dementia, other Endocrine: Denies: DM, hypothyroidism, other, steroids HEENT: Denies: NEWTOK (L), NEWTOK (R), cataract (L), cataract (R), glaucoma, other Hematology/Immune: Denies: DVT, anemia, bleeding disorder, other Musculoskeletal/Integumentary: Reports: OA, Denies: DDD, DJD, RA, edema, other PSxH Narrative: pacemaker Anesthesia Pre-op Phys. Exam Physician Exam Last Vital Signs Date Time Temp Pulse Resp B/P Pulse Ox O2 Delivery O2 Flow Rate FiO2 04/28/17 04:00 97.7 69 20 133/56 100 Nasal Cannula 2.0 04/26/17 16:00 98 Constitutional: NAD Cardiovascular: RRR Respiratory: CTA Airway Exam Mallampati Score: Class II MO: limited ROM: limited Teeth: missing, intact Anesthesia Pre-op A/P Labs Hematology Test 04/27/17 13:00 White Blood Count 14.2 K/UL (4.8-10.8) H Red Blood Count 4.49 M/UL (4.70-6.10) L Hemoglobin 14.0 G/DL (14.2-18.0) L Hematocrit 43.2 % (42.0-52.0) Mean Corpuscular Volume 96 FL (80-99) Mean Corpuscular Hemoglobin 31.1 PG (27.0-31.0) H Mean Corpuscular Hemoglobin Concent 32.3 G/DL (32.0-36.0) Red Cell Distribution Width 12.1 % (11.6-14.8) Platelet Count 243 K/UL (150-450) Mean Platelet Volume 8.5 FL (6.5-10.1) Neutrophils (%) (Auto) 82.6 % (45.0-75.0) H Lymphocytes (%) (Auto) 9.6 % (20.0-45.0) L Monocytes (%) (Auto) 7.2 % (1.0-10.0) Eosinophils (%) (Auto) 0.1 % (0.0-3.0) Basophils (%) (Auto) 0.5 % (0.0-2.0) Chemistry Test 04/27/17 13:00 Sodium Level 135 mEQ/L (135-145) Potassium Level 4.3 mEQ/L (3.4-4.9) Chloride Level 95 mEQ/L (98-107) L Carbon Dioxide Level 23 mEQ/L (20-30) Anion Gap 17 (5-15) H Blood Urea Nitrogen 24 mg/dL (7-23) H Creatinine 1.2 mg/dL (0.7-1.2) Estimat Glomerular Filtration Rate mL/min (>60) Glucose Level 131 mg/dL (74-106) H Calcium Level 9.6 mg/dL (8.6-10.2) Total Bilirubin 0.4 mg/dL (0.0-1.2) Aspartate Amino Transf (AST/SGOT) 14 U/L (5-40) Alanine Aminotransferase (ALT/SGPT) 5 U/L (3-41) Alkaline Phosphatase 72 U/L (40-129) Total Protein 6.7 g/dL (6.6-8.7) Albumin 4.2 g/dL (3.5-5.2) Globulin 2.5 g/dL Albumin/Globulin Ratio 1.6 (1.0-2.7) Studies Pre-op Studies: EKG - sr, paced Risk Assessment & Plan Assessment: ASA III Plan: MAC Status Change Before Surgery: No Pre-Antibiotics Drug: Ancef 1g Given Within 1 Hr of Incision: JUANITO Witt M.D. Apr 28, 2017 09:45
[2017-04-28] MEDS: Vitamin A&D Oint 2oz Tube TOPIC SCH (09:57)
[2017-04-28] MEDS ORDERED: Propofol 10mg/ml 20ml IV ONE (10:00)
[2017-04-28] MEDS ORDERED: Lidocaine 1% MPF 10mg/ml 5ml ONE (10:00)
[2017-04-28] MEDS ORDERED: LR 1000ml ONE (10:00)
[2017-04-28] MEDS ORDERED: fentaNYL 100 mcg/2 mL IV ONE (10:00)
[2017-04-28] MEDS: Bethanechol 25mg Tab ORAL SCH ×2 (10:03→12:40)
--- NOTE | 2017-04-28 10:06 | Pre-Procedure Note/Attestation ---
Pre-Procedure Note/Attestation Complete Prior to Procedure Planned Procedure: left Procedure Narrative: pacemaker generator replacement Indications for Procedure Pre-Operative Diagnosis: pacemaker AZALIA Attestation I attest that I discussed the nature of the procedure; its benefits; risks and complications; and alternatives (and the risks and benefits of such alternatives ), prior to the procedure, with the patient (or the patient's legal customer loyalty representative). I attest that, if there was a reasonable possibility of needing a blood transfusion, the patient (or the patient's legal customer loyalty representative) was given the [facility] standardized written summary, pursuant to the [place] Blood Safety Act ([place] Health and Safety Code # 1645, as amended). I attest that I re-evaluated the patient just prior to the surgery and that there has been no change in the patient's H&P, except as documented below: BALAJI PEACOCK Apr 28, 2017 10:05
[2017-04-28] MEDS ORDERED: LR 1000ml 1,000 ML IVLG SCH (10:13)
[2017-04-28] MEDS ORDERED: Hydromorphone 0.5mg/0.5ml inj IVP PRN (10:15)
[2017-04-28] MEDS ORDERED: DiphenhydrAMINE 50mg/ml Inj IVP PRN (10:15)
[2017-04-28] MEDS ORDERED: fentaNYL 100 mcg/2 mL IV PRN (10:15)
--- NOTE | 2017-04-28 11:03 | Cardiology Progress Note ---
Subjective Subjective pacemaker was interrogated and the patient is dependent he does not have spontaneous ventricular activity. He needs temporary pacemaker during the procedure. Because OR was not ready for temporary pacing, procedure was cancelled and will be done on a different day. Objective Last 24 Hour Vital Signs Date Time Temp Pulse Resp B/P Pulse Ox O2 Delivery O2 Flow Rate FiO2 04/28/17 08:00 96.3 79 20 141/64 99 Nasal Cannula 2.0 04/28/17 04:00 97.7 69 20 133/56 100 Nasal Cannula 2.0 04/28/17 03:54 71 04/28/17 00:00 97.5 79 18 111/54 98 Nasal Cannula 2.0 04/27/17 23:37 84 04/27/17 20:01 98.4 88 20 148/69 94 Nasal Cannula 04/27/17 19:09 85 04/27/17 16:00 98.2 83 21 136/57 97 Nasal Cannula 2.0 04/27/17 16:00 83 04/27/17 12:00 98.1 90 18 137/64 96 Nasal Cannula 2.0 04/27/17 12:00 86 Intake and Output 04/27/17 04/28/17 19:00 07:00 Intake Total 200 ml Output Total 500 ml Balance -300 ml Intake Oral 200 ml Output Urine Total 500 ml Laboratory Tests Test 04/27/17 13:00 White Blood Count 14.2 K/UL (4.8-10.8) H Red Blood Count 4.49 M/UL (4.70-6.10) L Hemoglobin 14.0 G/DL (14.2-18.0) L Hematocrit 43.2 % (42.0-52.0) Mean Corpuscular Volume 96 FL (80-99) Mean Corpuscular Hemoglobin 31.1 PG (27.0-31.0) H Mean Corpuscular Hemoglobin Concent 32.3 G/DL (32.0-36.0) Red Cell Distribution Width 12.1 % (11.6-14.8) Platelet Count 243 K/UL (150-450) Mean Platelet Volume 8.5 FL (6.5-10.1) Neutrophils (%) (Auto) 82.6 % (45.0-75.0) H Lymphocytes (%) (Auto) 9.6 % (20.0-45.0) L Monocytes (%) (Auto) 7.2 % (1.0-10.0) Eosinophils (%) (Auto) 0.1 % (0.0-3.0) Basophils (%) (Auto) 0.5 % (0.0-2.0) Sodium Level 135 mEQ/L (135-145) Potassium Level 4.3 mEQ/L (3.4-4.9) Chloride Level 95 mEQ/L (98-107) L Carbon Dioxide Level 23 mEQ/L (20-30) Anion Gap 17 (5-15) H Blood Urea Nitrogen 24 mg/dL (7-23) H Creatinine 1.2 mg/dL (0.7-1.2) Estimat Glomerular Filtration Rate mL/min (>60) Glucose Level 131 mg/dL (74-106) H Calcium Level 9.6 mg/dL (8.6-10.2) Total Bilirubin 0.4 mg/dL (0.0-1.2) Aspartate Amino Transf (AST/SGOT) 14 U/L (5-40) Alanine Aminotransferase (ALT/SGPT) 5 U/L (3-41) Alkaline Phosphatase 72 U/L (40-129) Total Protein 6.7 g/dL (6.6-8.7) Albumin 4.2 g/dL (3.5-5.2) Globulin 2.5 g/dL Albumin/Globulin Ratio 1.6 (1.0-2.7) BALAJI PEACOCK Apr 28, 2017 11:03
[2017-04-28 14:13] LABS: BASOPHILS % (AUTO) 0.6 % (0.0-2.0); EOSINOPHILS % (AUTO) 0.2 % (0.0-3.0); LYMPHOCYTES % (AUTO) 9.2 % (20.0-45.0); MEAN CORPUSCULAR HGB CONC 32.3 G/DL (32.0-36.0); MEAN CORPUSCULAR VOLUME 96 FL (80-99); MEAN PLATELET VOLUME 7.5 FL (6.5-10.1); MONOCYTES % (AUTO) 5.6 % (1.0-10.0); NEUTROPHILS % (AUTO) 84.4 % (45.0-75.0); PLATELET COUNT 219 K/UL (150-450); RED BLOOD COUNT 4.48 M/UL (4.70-6.10); RED CELL DISTRIBUTION WIDTH 11.8 % (11.6-14.8); WHITE BLOOD COUNT 9.7 K/UL (4.8-10.8)
[2017-04-28 14:36] LABS: ALANINE AMINOTRANSFERASE 5 U/L (3-41); ALBUMIN/GLOBULIN RATIO 1.9 (1.0-2.7); ANION GAP 17 (5-15); ASPARTATE AMINO TRANSFERASE 12 U/L (5-40); CALCIUM 9.4 mg/dL (8.6-10.2); CARBON DIOXIDE 22 mEQ/L (20-30); CHLORIDE 97 mEQ/L (98-107); CREATININE 1.2 mg/dL (0.7-1.2); HEMOLYSIS 5; POTASSIUM 4.3 mEQ/L (3.4-4.9); SODIUM 136 mEQ/L (135-145); TOTAL PROTEIN 6.1 g/dL (6.6-8.7)
[2017-04-28] MEDS ORDERED: Tubing IV Secondary IV ONE (15:33)
[2017-04-28] MEDS ORDERED: NS 275ml ONE (15:33)
--- NOTE | 2017-04-28 18:57 | Pulmonology Progress Note ---
Assessment/Plan Problems: (1) Chest pain (2) Urinary retention (3) Dyspnea (4) Costochondritis (5) Pacemaker (6) BPH (benign prostatic hyperplasia) Assessment/Plan no new complains asking for laxatives again was seen by cardiology pacemaker generator was not changed for technical reasons dc home with f/u with dr Bruno who said it is ok to discharge Subjective ROS Limited/Unobtainable: No Constitutional: Reports: no symptoms HEENT: Repors: no symptoms Respiratory: Reports: no symptoms Allergies: Coded Allergies: No Known Allergies (Unverified , 04/24/17) Objective Last 24 Hour Vital Signs Date Time Temp Pulse Resp B/P Pulse Ox O2 Delivery O2 Flow Rate FiO2 04/28/17 12:00 85 04/28/17 12:00 98.4 78 25 135/79 100 Nasal Cannula 3.0 04/28/17 11:45 79 20 157/41 100 Nasal Cannula 3.0 04/28/17 11:30 78 26 151/41 100 Nasal Cannula 3.0 04/28/17 11:15 78 24 144/53 99 Nasal Cannula 3.0 04/28/17 11:10 72 04/28/17 11:00 98.1 80 19 142/50 100 Nasal Cannula 3.0 04/28/17 08:00 96.3 79 20 141/64 99 Nasal Cannula 2.0 04/28/17 04:00 97.7 69 20 133/56 100 Nasal Cannula 2.0 04/28/17 03:54 71 04/28/17 00:00 97.5 79 18 111/54 98 Nasal Cannula 2.0 04/27/17 23:37 84 04/27/17 20:01 98.4 88 20 148/69 94 Nasal Cannula 04/27/17 19:09 85 Intake and Output 04/27/17 04/28/17 19:00 07:00 Intake Total 200 ml Output Total 500 ml Balance -300 ml Intake Oral 200 ml Output Urine Total 500 ml General Appearance: WD/WN HEENT: normocephalic, atraumatic Respiratory/Chest: chest wall non-tender, lungs clear Cardiovascular: normal peripheral pulses, normal rate Abdomen: normal bowel sounds, soft, non tender, no scars Genitourinary: normal external genitalia Extremities: no clubbing Laboratory Tests 04/28/17 13:55: White Blood Count 9.7, Red Blood Count 4.48L, Hemoglobin 13.9L, Hematocrit 43.0 , Mean Corpuscular Volume 96, Mean Corpuscular Hemoglobin 31.0, Mean Corpuscular Hemoglobin Concent 32.3, Red Cell Distribution Width 11.8, Platelet Count 219, Mean Platelet Volume 7.5, Neutrophils (%) (Auto) 84.4H, Lymphocytes ( %) (Auto) 9.2L, Monocytes (%) (Auto) 5.6, Eosinophils (%) (Auto) 0.2, Basophils (%) (Auto) 0.6, Sodium Level 136, Potassium Level 4.3, Chloride Level 97L, Carbon Dioxide Level 22, Anion Gap 17H, Blood Urea Nitrogen 27H, Creatinine 1.2 , Estimat Glomerular Filtration Rate , Glucose Level 149H, Calcium Level 9.4, Total Bilirubin 0.3, Aspartate Amino Transf (AST/SGOT) 12, Alanine Aminotransferase (ALT/SGPT) 5, Alkaline Phosphatase 71, Total Protein 6.1L, Albumin 4.0, Globulin 2.1, Albumin/Globulin Ratio 1.9 SEAN WU Apr 28, 2017 18:57
--- NOTE | 2017-04-29 07:20 | Immediate Post-Op Evaluation ---
Immediate Post-Op Evalulation Immediate Post-Op Evalulation Procedure: Attempted pacemaker generator change Date of Evaluation: Apr 29, 2017 Time of Evaluation: 10:59 IV Fluids: 100 Blood Products: 0 Estimated Blood Loss: 0 Urinary Output: 0 Blood Pressure Systolic: 121 Blood Pressure Diastolic: 66 Pulse Rate: 80 Respiratory Rate: 16 O2 Sat by Pulse Oximetry: 99 Temperature (Fahrenheit): 97.2 Pain Score (1-10): 0 Nausea: No Vomiting: No Complications No complications. Case cancelled by Dr. Alcazar intra-op s/p sedation. Pre-op interrogation of the pacemaker not performed but case booked. Intra-op, patient found to be pacemaker dependent therefore Dr. Alcazar cancelled the case as the did not feel comfortable placing a temporary pacemaker. At this time, anesthesia weaned and patient woken up. Patient Status: awake, reacts, patent, none Hydration Status: adequate Drug: N/A JUANITO TEJEDA M.D. Apr 29, 2017 07:20
[2017-04-29 07:22] VITALS: BP 135/79
--- NOTE | 2017-04-29 07:22 | 48 Hour Post Anesthesia Eval ---
Post Anesthesia Evaluation Procedure: Attempted pacemaker generator change Date of Evaluation: Apr 28, 2017 Time of Evaluation: 12:00 Blood Pressure Systolic: 135 0: 79 Pulse Rate: 78 Respiratory Rate: 20 Temperature (Fahrenheit): 98.4 O2 Sat by Pulse Oximetry: 100 Airway: patent Nausea: No Vomiting: No Pain Intensity: 0 Hydration Status: adequate Cardiopulmonary Status: at baseline Mental Status/LOC: patient returned to baseline Post-Anesthesia Complications: 0 Follow-up care needed: N/A - further care as per primary team JUANITO TEJEDA M.D. Apr 29, 2017 07:22
--- NOTE | 2017-04-30 14:26 | Discharge Summary ---
Discharge Summary Hospital Course Date of Admission Apr 24, 2017 at 20:48 Date of Discharge Apr 28, 2017 at 15:34 Admitting Diagnosis chest pain HPI Nader Cobos is a 86 year old male who was admitted on Apr 24, 2017 at 20:48 for Chest Pain Hospital Course dc summary #[id number] Discharge Medications Continued Medications: Allopurinol* (Allopurinol*) 100 Mg Tablet 100 MG ORAL DAILY, TAB Amlodipine Besylate (Norvasc) 2.5 Mg Tablet Unknown Dose ORAL DAILY, TAB Clopidogrel Bisulfate* (Plavix*) 75 Mg Tablet 75 MG ORAL DAILY, TAB Escitalopram Oxalate* (Lexapro*) 20 Mg Tablet 20 MG ORAL DAILY, TAB Levodopa/Carbidopa (Carbidopa-Levodopa 25-100 Tab) 1 Each Tablet 1 TAB ORAL THREE TIMES A DAY, TAB Discharge Condition Upon Discharge: stable Discharge Disposition Patient was discharged to Home (01) Discharge Diagnoses: Discharge Instructions Discharge Instructions Special Instructions I have been assigned to complete a D/C Summary on this account. I was not involved in the patient management Juliane Estevez NP ([place]) Apr 30, 2017 14:26
--- NOTE | 2017-05-01 04:01 | Discharge Summary ---
DATE OF ADMISSION: 04/24/2017 DATE OF DISCHARGE: 04/28/2017 REASON FOR ADMISSION: 86-year-old male came to the emergency room complaining of chest pain and shortness of breath. He reported that the symptoms started few days ago. He denied cough or congestion. He denied fever or chills. Denied nausea or vomiting. He also reported some difficulties with urination. Patient was found to have urinary retention. Coleman catheter was placed with significant relief. No evidence of UTI or prostatitis on urinalysis. EKG revealed no acute changes, pacing without ischemic changes. Troponin was negative. The patient was at high risk for acute coronary syndrome, given his age and his history of coronary artery disease as well as pacemaker and hypertension.The patient has a high cardiac risk and admitted for further management. ADMITTING DIAGNOSES: 1. Chest pain 2. Rule out acute coronary syndrome. 3. Dyspnea. 4. Benign prostatic hypertrophy with urinary retention. 5. Pacemaker. 6. Coronary artery disease. HOSPITAL COURSE: The patient was admitted to telemetry floor. Cardiology consult was requested. Troponin x3 were negative. EKG showed no acute ischemic changes, pacing. Thus, the patient was ruled out for acute myocardial infarction. Chest x-ray was negative for acute cardiopulmonary pathology, it revealed left chest pacemaker. Venous duplex of bilateral lower extremities was negative. Echocardiogram revealed preserved ejection fraction of 55% and right ventricular systolic pressure of 25. The patient was well known to [facility] who oversee this patient as outpatient for years. The patient needed a generator change, which was scheduled on 04/28/2017. However, prior to that, interrogation of pacemaker was done, which found that the patient was dependent on the pacemaker and did not have spontaneous ventricular activity. Per [facility], the patient needs temporary pacemaker during the procedure. Operating room was not ready for temporary pacing, therefore procedure was canceled and will be done on a different day by [facility] as outpatient. [facility] cleared the patient for discharge and follow up with him next week. While in the hospital, Plavix was continued. Blood pressure was managed with calcium channel marjan and was stable. Sinemet was continued. Per [facility], no evidence of congestive heart failure. Chest pain was atypical, possibly of musculoskeletal origin, likely costochondritis. The patient was stable for discharge home. DISCHARGE DIAGNOSES: 1. Atypical chest pain. 2. Likely costochondritis. 3. Benign prostatic hypertrophy with urinary retention. 4. Pacemaker. 5. Coronary artery disease. DISCHARGE MEDICATIONS: See medication reconciliation list. DISCHARGE INSTRUCTIONS: The patient was discharged home. Follow up with the [facility] next week. Jhon Richardson M.D. Juliane IsbellF F Thompson HospitalYamilex NClintPClint DR: FABIOLA JOB#: [id number] CC: CARLOS EDUARDO
== END 2017-04-28 15:34 | disposition home or self-care (01) | DRG 206 ==
LOC: EDBD 18:07 → EMR 18:41 → 2E 20:48 → EDBEDREQ 04-25 01:02
DX: M94.0 Chondrocostal junction syndrome [Tietze] (principal); L89.610 Pressure ulcer of right heel, unstageable; F41.9 Anxiety disorder, unspecified; N40.1 Benign prostatic hyperplasia with lower urinary tract symptoms; R33.8 Other retention of urine; R07.89 Other chest pain; I25.10 Atherosclerotic heart disease of native coronary artery without angina pectoris; F41.0 Panic disorder [episodic paroxysmal anxiety]; Z45.010 Encounter for checking and testing of cardiac pacemaker pulse generator [battery]
CPT/HCPCS: 36415; 71010; 80048; 80053; 80069; 81003; 82550; 82553; 83880; 84484; 85025; 85610; 85730; 93005; 93306; 93970; 94003; 94150